=== PATIENT | male | born 2000 | race Caucasian/White ===

== ENCOUNTER 2024-01-15 09:18 | Emergency (ER) | payer OTHER, SELFPAY ==
[2024-01-15 09:29] VITALS: BP 155/78; PULSE 83; RESP 16; TEMP 37.5; O2SAT 100
--- NOTE | 2024-01-15 09:48 | ED.GENADULT ---
HPI - General Adult General Chief complaint: Upper Respiratory Infection Stated complaint: Sore Throat Source: patient Mode of arrival: ambulatory Limitations: no limitations History of Present Illness HPI narrative: Patient presents for evaluation of sore throat for the past 3 days. Symptom onset occurred following multiple episodes of vomiting. He has cannabis hyperemesis syndrome. He did have some hematemesis around the time of symptom onset. With his cannabis hyperemesis syndrome, he typically experiences nausea in the morning. Denies any fever, chills, cough, shortness of breath. No recent sick contacts to his knowledge. Related Data Allergies Allergy/AdvReac Type Severity Reaction Status Date / Time No Known Allergies Allergy Unverified 01/21/20 08:46 Review of Systems Review of Systems: CONSTITUTIONAL: Denies fever, chills, or sweats. EYES: Denies visual changes, redness, or discharge. ENT:Reports sore throat. Denies rhinorrhea, congestion, or otalgia. CARDIOVASCULAR: Denies chest pain, palpitations, or edema. RESPIRATORY: Denies cough or dyspnea. GASTROINTESTINAL: Reports recent nausea and vomiting. Denies abdominal pain or diarrhea. GENITOURINARY: Denies dysuria or hematuria. SKIN: Denies rash or itching. MUSCULOSKELETAL: Denies back pain, joint pain, or myalgia. NEUROLOGIC: Denies headache, numbness, dizziness, or weakness. PSYCHIATRIC: Denies anxiety or depression. PMFSH Past Medical History Medical History Cannabis hyperemesis syndrome concurrent with and due to cannabis abuse Surgical History Surgical History No pertinent past surgical history Family History Family History (Updated 01/04/19 @ 14:42 by DOCTOR UNKNOWN) Mother Family history of multiple sclerosis Social History Social History (Updated 01/15/24 @ 10:02 by Raphael Naidu, [facility], ) Smoking status: Current every day smoker Tobacco type: cigarettes (1 per day started 2 months ago ) Alcohol intake: never Substance use: current Substance use type: marijuana Gender identity (if verbalized by the patient): Male Spiritual care concerns: No Exam Narrative: GENERAL: Well-appearing, well-nourished, and in no acute distress. HEAD: Normocephalic, atraumatic. EYES: PERRLA and EOMI. ENT: Nares clear, no rhinorrhea or epistaxis. Mucous membranes moist. Oropharynx without tonsillar hypertrophy exudate or other lesions. Bilateral TMs pearly morirs nonbulging NECK: Supple. No adenopathy or masses. No carotid bruits or JVD CHEST: Clear to auscultation. No respiratory distress. No wheezes rales or rhonchi HEART: Regular rate and rhythm. No murmur heard. Normal peripheral pulses. ABDOMEN: Soft, nontender, nondistended, normal active bowel sounds. EXTREMITIES: Normal range of motion. No edema. SKIN: Warm, dry, no rash. NEURO: No focal deficits. Alert and oriented x3. PSYCH: Normal mood and affect. Course Course Emergency Course: This is a 23-year-old male who presented for evaluation of sore throat. Rapid strep negative. His symptoms seem to be irritation from frequent vomiting and some reflux. I offered to provide him with a prescription for nausea medication. He declined. Will discharge with pantoprazole. Hematemesis also likely from irritation the pharynx. He has not had symptoms today. Follow-up with primary provider. Go to the ER for worsening symptoms. Patient in agreement plan of care Level of Care: Express Care Visit Vital Signs Vital signs: Vital Signs Temperature 37.5 C 01/15/24 09:29 Pulse Rate 83 01/15/24 09:29 Respiratory Rate 16 01/15/24 09:29 Blood Pressure 155/78 H 01/15/24 09:29 Pulse Oximetry 100 01/15/24 09:29 Oxygen Delivery Room Air 01/15/24 09:29 Temperature 37.5 C 01/15/24 09:29 Pulse Rate 83 01/15/24 09:29 Respiratory Rate 16
[2024-01-15 11:44] LABS: EDSTREPNEGPOS1 Presumptive Negative
== END 2024-01-15 10:05 | disposition home or self-care (01) ==
PROVIDERS: Emergency Provider Nurse Practitioner
DX: J02.9 Acute pharyngitis, unspecified (principal); R11.10 Vomiting, unspecified; F12.10 Cannabis abuse, uncomplicated; F17.210 Nicotine dependence, cigarettes, uncomplicated
CPT/HCPCS: 87081; 87880; 99213; G0463